=== PATIENT | female | born 1995 | race Caucasian/White ===

== ENCOUNTER 2021-10-27 04:38 | Day surgery (SDC) | payer OTHER ==
[2021-10-23 16:29] VITALS: BMI 47.9
[2021-10-27 12:52] VITALS: TEMP 98.2
[2021-10-27 13:54] VITALS: BP 115/60; PULSE 62
== END 2021-10-27 14:05 | disposition home or self-care (01) ==
LOC: JASU-ENDO 04:38
PROVIDERS: ATTEND Internal Medicine Gastroenterology
PROC: 0DC68ZZ Extirpation of Matter from Stomach, Via Natural or Artificial Opening Endoscopic (ICD-10-PCS; principal; 2021-10-27 11:00)
DX: T18.2XXA Foreign body in stomach, initial encounter (principal); O26.892 Other specified pregnancy related conditions, second trimester; Z3A.15 15 weeks gestation of pregnancy
CPT/HCPCS: 76815